=== PATIENT | female | born 1970 | race Caucasian/White ===

== ENCOUNTER 2018-08-13 05:08 | Day surgery (SDC) ==
[2018-08-07 14:17] LABS: BASO# 0.03 X1000 (0.0-0.2); BASO% 0.6 % (0.0-0.8); EOS# 0.13 X1000 (0.0-0.7); EOS% 2.8 % (0.0-10.0); HEMATOCRIT 40.2 % (37.0-47.0); HEMOGLOBIN 13.3 g/dL (12.0-16.0); LYMPH# 1.81 X1000 (1.2-3.4); LYMPH% 39.1 % (20.5-51.1); MCH 26.5 PG (27-31); MCHC 33.1 g/dL (33-37); MCV 80.1 FL (81-99); MONO# 0.32 X1000 (0.11-0.59); MONO% 6.9 % (1.7-9.3); MPV 9.7 FL (7.4-10.4); NEUT# 2.34 X1000 (1.4-6.5); NEUT% 50.6 % (42.2-75.2); PLT 297 X1000 (130-400); RBC 5.02 XMIL (4.2-5.4); RDW 13.6 % (11.5-14.5); WBC 4.63 X1000 (4.8-10.8)
--- NOTE | 2018-08-07 14:30 | EKG Report ---
Test Performed on : 08/07/2018 1:10:20 PM Test Reason : PAT Blood Pressure : / mmHG Vent. Rate : 060 BPM Atrial Rate : 060 BPM P-R Int : 150 ms QRS Dur : 102 ms QT Int : 400 ms P-R-T Axes : 012 022 033 degrees QTc Int : 400 ms Normal sinus rhythm. Normal ECG When compared with ECG of 07-OCT-2015 21:26, QT has shortened Unconfirmed Result
[2018-08-07 14:45] LABS: AGAP 8; BUN 11 mg/dL (8-22); CALCIUM 9.5 mg/dL (8.8-10.2); CHLORIDE 102 mmol/L (98-107); COSMO 273; CREATININE 0.7 mg/dL (0.5-0.9); ESTIMATED GFR > 60; GLUCOSE 90 mg/dL (70-104); POTASSIUM 4.6 mmol/L (3.5-5.1); SODIUM 137 mmol/L (136-145); TCO2 27 mmol/L (25-35)
[2018-08-13] MEDS ORDERED: KEFZOL 2 GM/D5W 2 GM/50 ML IVPB ONE (05:58)
[2018-08-13] MEDS ORDERED: TRANSDERM-SCOP ONE (05:58)
[2018-08-13] MEDS ORDERED: LR 1,000 ML ONE (05:58)
[2018-08-13] MEDS ORDERED: PEPCID ONE (05:58)
[2018-08-13] MEDS ORDERED: REGLAN ONE (05:58)
[2018-08-13] MEDS ORDERED: SENSORCAINE 0.5%-EPI 1:200,000 ONE (06:17)
[2018-08-13] MEDS ORDERED: XYLOCAINE-MPF 2% ONE (06:32)
[2018-08-13] MEDS ORDERED: QUELICIN (DOSE) ONE (06:32)
[2018-08-13] MEDS ORDERED: DIPRIVAN 1% ONE (06:32)
[2018-08-13] MEDS ORDERED: ZOFRAN ONE ×2 (07:07→07:10)
[2018-08-13] MEDS ORDERED: DECADRON ONE (07:07)
[2018-08-13] MEDS ORDERED: EPHEDRINE ONE (07:15)
[2018-08-13] MEDS ORDERED: VERSED ONE (07:15)
[2018-08-13] MEDS ORDERED: OFIRMEV 1000 MG/ISOTONIC SOLN 1,000 MG/100 ML BOTTLE ONE (07:15)
[2018-08-13] MEDS ORDERED: NORCURON ONE (07:28)
[2018-08-13] MEDS ORDERED: BENADRYL ONE (07:35)
[2018-08-13] MEDS ORDERED: PHENERGAN ONE (07:35)
[2018-08-13] MEDS ORDERED: DILAUDID ONE (07:47)
[2018-08-13] MEDS ORDERED: ROBINUL ONE (08:02)
[2018-08-13] MEDS ORDERED: NEOSTIGMINE ONE (08:14)
--- NOTE | 2018-08-13 11:33 | OPERATIVE NOTE ---
PROCEDURE DATE: 08/13/2018 PREOPERATIVE DIAGNOSIS: Suspicious right thyroid nodule. POSTOPERATIVE DIAGNOSIS: Suspicious right thyroid nodule. PROCEDURE: Right thyroid lobectomy. SURGEON: Sixto Ramirez MD. REINFORCER: Dr. Swain. Dr. Swain assisted with the entirety of the case. His presence was crucial for the entire completion of the case for identification of anatomy. ANESTHESIA: General endotracheal. FINDINGS: Preliminary pathology report showed benign pathology. COMPLICATIONS: None at time of dictation. ESTIMATED BLOOD LOSS: 20 mL. SPECIMEN REMOVED: Right thyroid lobe. BRIEF HISTORY: A 48-year-old female who I had seen previously in the office for right thyroid nodule has increased in size. We had done an FNA that was benign pathology, but given the increase in size of the calcifications, felt that she might need more aggressive biopsy. The risks, benefits, and alternatives for the procedure were discussed and documented in the chart. All questions were answered. DESCRIPTION OF PROCEDURE: After informed consent was obtained, patient was brought to the operative theatre, transferred to the operating table, and placed in supine position. General endotracheal anesthesia was then performed without complication. A formal time-out was then performed confirming patient, date, and procedure. All were in agreement. At that time, attention placed to the neck. We prepped and draped the neck in a sterile fashion. After the time-out, we found an crease in her neck. Two fingerbreadths above the sternal notch, we made incision. The platysma muscle was identified, identified the median raphe, and dissected through the median raphe. Her right thyroid lobe was somewhat stuck to the strap muscles, but we were able to dissect it off. We did have to transect through the strap muscles to be able to identify the thyroid lobe in its entirety since it was enlarged. We first started our dissection on a superior pole, and dissected it out while preserving the major structures. We appeared to identify the right superior parathyroid gland, dissected along medially, and then came around inferiorly taking down the inferior lobe. We then dissected in the ligament of Mishra. We did not directly visualize the recurrent laryngeal nerve, but we stayed very much on the thyroid itself and dissected off completely. We then transected at the isthmus. We then sent this down to pathology. Pathology shows benign preliminary evaluation. We then placed Surgifoam into the area. We closed the strap muscles and the platysma muscles, and closed the skin with a running Monocryl. The patient tolerated the procedure well. She will be observed overnight. cc: Sixto Ramirez MD
[2018-08-13] MEDS ORDERED: ZOFRAN IV PRN (11:44)
[2018-08-13] MEDS: ULTRAM PO PRN ×2 (12:49→18:53)
[2018-08-13] MEDS: TUMS PO SCH ×2 (13:23→17:25)
[2018-08-13] MEDS: PERIDEX MT SCH (22:35)
[2018-08-14] MEDS: ULTRAM PO PRN ×2 (01:32→08:46)
[2018-08-14 07:44] VITALS: BP 128/71
[2018-08-14] MEDS: TUMS PO SCH (08:39)
[2018-08-14] MEDS: PERIDEX MT SCH (08:39)
--- NOTE | 2018-08-14 08:48 | GENERAL SURGERY PROGRESS NOTE ---
DATE: 08/14/2018 SUBJECTIVE: Patient seems to be doing well. No issues with numbness or tingling around her mouth. Her voice seems normal. OBJECTIVE: Vital Signs: The patient is currently afebrile. Her vital signs are stable. General Examination: No acute distress. Cardiovascular: Regular rate and rhythm. Lungs: Grossly clear. Neck: Without obvious hematoma. Voice is normal. ASSESSMENT AND PLAN: A 48-year-old female status post right thyroid lobectomy. Postoperative state. At this time, I think patient could be discharged home. We will try to make arrangements. cc: Sixto Ramirez MD
[2018-08-14] MEDS ORDERED: PRECARE PO SCH (09:00)
[2018-08-14] MEDS ORDERED: FLONASE NAS SCH (09:00)
[2018-08-14] MEDS ORDERED: PRINIVIL PO SCH (09:00)
[2018-08-14] MEDS ORDERED: LASIX PO SCH (09:00)
[2018-08-14] MEDS ORDERED: SINGULAIR PO SCH (09:00)
[2018-08-14] MEDS ORDERED: KLOR-CON PO SCH (09:00)
== END 2018-08-14 09:05 | disposition home or self-care (01) ==
LOC: OPS 05:08 → PAT 05:08 → 4N 05:08 → OPS 08-14 09:05
PROVIDERS: ATTEND Surgery
CPT/HCPCS: 80048; 85025; 88307; 88313; 88331; 93005; 93010; 94761; 94799; A9270; J0131; J0330; J0690; J1100; J1170; J1200; J2250; J2405; J2550; J7120